=== PATIENT | male | born 1970 | race Caucasian/White ===

== ENCOUNTER 2017-05-25 17:30 | Outpatient (RCR) | payer BC, SELFPAY ==
--- NOTE | 2017-05-30 08:20 | HP.PTEVAL_ITS ---
Patient's Visit Information GITA SIERRA is a 46 year old M referred to Physical Therapy by Theron Sharp with a diagnosis of R rhomboid strain. Date of Evaluation: 05/18/17 Physical Therapist: Ismael Vann - Visit Plan Frequency: 1-2x /Week Duration: 4-6 Weeks Plan: Start with manual techniques including DN to R rhomboid. Add in pec stretching, postural education and proper body mechanics to reduce stress applied to R rhomboid with all gym and work activities. - Subjective Subjective: Pt. is here today for his initial evaluation with daignosis of right rhomboid strain. Pt. reports having issues for years. He has trialed massage, chiropractic, heat, ice, muscle relaxors. Pt. 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 Increases pain: work, using sledge hammer, lifting, press with lifting. Pt. just recently started lifting with . Decreases pain: stretching, and foam rolling, mild minimal. Pt. denies N/T with all activies with UEs. Pt. reports no xrays currently. He has no difficulty with breathing. Pt. denies shoulder pain as well. No L sided or thoracic spine pain. Pt. is hopeful to reduce symptoms in order to get back to all recreational and work activities without issues. - Pain R side of mid thoracic spine Pain Intensity (Out of 10): 3 Pain Intensity Range: 1, 6 - Objective POSTURE: Pt. has slight rounded shoulder, symmetrical. Pt. has increased thoracic kyphosis, but is able to self correct. Pt. has normal shoulder heights. PALPATION: Pt. has no thoracic spinous process pain with PAs, Pt. harkins no L sided pain. R side of mid trap/rhomboid is painful, increased pain along medial boarder of R scapulea. NEUROLOGICAL: Pt. has normal sensation to light and sharp touch. Pt. has 2+ biceps and triceps DTR. No limb tension noted. ROM : Pt. has full bilateral shoulder ROM without increase in symptoms. Pt. has mild increase in symptoms with scapular retraction, stretch felt with protraction. Pt. has normal thoracic spine mobility. MMT: PT. has 5/5 bilateral shoulder strength. R mid trap 4+/5 increase NW, R rhomboid 4+/5 increase NW. No left sided issues noted. - Special Tests Thoracic Sitting: Flexion - Symptoms During Testing: No effect Thoracic Sitting: Flexion - Symptoms After Testing: No effect Thoracic Sitting: Extension - Mechanical Response: No effect Thoracic Sitting: Extension - Symptoms During Testing: No effect Thoracic Sitting: Extension - Symptoms After Testing: No effect Thoracic Sitting: Right rotation - Mechanical Response: No effect Thoracic Sitting: Right Rotation - Symptoms During Testing: No effect Thoracic Sitting: Right Rotation - Symptoms After Testing: No effect Thoracic Sitting: Left rotation - Mechanical Response: No effect Thoracic Sitting: Left Rotation - Symptoms During Testing: No effect Thoracic Sitting: Left Rotation - Symptoms After Testing: No effect Thoracic Lying: Prone Extension - Mechanical Response: No effect Thoracic Lying: Prone Extension - Symptoms During Testing: No effect Thoracic Lying: Prone Extension - Symptoms After Testing: No effect Thoracic Lying: Supine Extension - Mechanical Response: No effect Thoracic Lying: Supine Extension - Symptoms During Testing: No effect Thoracic Lying: Supine Extention - Symptoms After Testing: No effect - Goals Goal 1:: Pt. to be I with HEP. Goal Time Frame: 4-6 Weeks Goal 2:: Pt. to have no pain with all work and gym related activities. Goal Time Frame: 4-6 Weeks Goal 3:: Pt. to have decreased tenderness in R scapular region with all over head lifting. Goal Time Frame: 4-6 Weeks Goal 4:: Pt. to have decreased muscle tension noted at R rhomboid. Goal Time Frame: 4-6 Weeks - Rehabilitation Potential Physical Therapy Diagnosis: Pt. appears to have a R rhomboid strain, most likely due to work related activitie with imprope postures. Pt. has no soft tissue restrictions, but is tender with activation of his rhomboids and is tender to muscle palpation. Pt. would benefit from PT with focus on muscle inhibition and improved posture to promote proper muscle tension relation. Rehabilitation Potential: Excellent - Anticipated Interventions Patient/Client Instruction: Educate patient on: Condition, Plan of Care, Risk Factors, Benefits of Fitness Program For the Purpose of:: To improve health and function, To foster healthy habits, To improve decision making, To facilitate caregiver knowledge, To improve self management, To prevent re-injury, To improve ability to perform tasks related to life management Therapeutic Exercise to Include: Strength training, Power training, Body mechanics, Postural training, Flexibilty training, Passive ROM, Active ROM, Scapular Strength/Stabilization For the Purpose of:: To decrease pain, To increase ROM, To improve nutrient delivery to tissue, To increase oxygenation perfusion, To improve muscle performance and motor function, To improve health of tissue, To decrease soft tissue restriction, To increase flexibility/ROM Manual Therapy Techniques to Include: Trigger point massage, Massage, Mobilization, Functional dry needling, Soft tissue mobilization For the Purpose of:: To decrease pain, To increase ROM, To improve nutrient delivery to tissue Thank you for the opportunity to evaluate your patient. For Medicare and Medicare HMO plans, please review the plan of care and approve it. It will need to be FAXED BACK to us at [phone] for Medicare purposes. Please let me know if there are questions or concerns regarding this plan of care. Physician Signature: Date:
--- NOTE | 2017-11-22 12:53 | HP.PT.NRP ---
HP - Discharge Summary (1) - Patient Information GITA SIERRA was seen in my office for initial evaluation on 05/18/17. The following Plan of Care was established for this patient: Initial Frequency: 1-2x /Week Initial Duration: 4-6 Weeks - Anticipated Interventions Patient/Client Instruction: Educate patient on: Condition, Plan of Care, Risk Factors, Benefits of Fitness Program For the Purpose of:: To improve health and function, To foster healthy habits, To improve decision making, To facilitate caregiver knowledge, To improve self management, To prevent re-injury, To improve ability to perform tasks related to life management Therapeutic Exercise to Include: Strength training, Power training, Body mechanics, Postural training, Flexibilty training, Passive ROM, Active ROM, Scapular Strength/Stabilization For the Purpose of:: To decrease pain, To increase ROM, To improve nutrient delivery to tissue, To increase oxygenation perfusion, To improve muscle performance and motor function, To improve health of tissue, To decrease soft tissue restriction, To increase flexibility/ROM Manual Therapy Techniques to Include: Trigger point massage, Massage, Mobilization, Functional dry needling, Soft tissue mobilization For the Purpose of:: To decrease pain, To increase ROM, To improve nutrient delivery to tissue This patient was last seen in our office 05/25/17. Pertinent comments regarding their Physical therapy will appear below: Pt. was seen for his R rhomboid strain. Pt. was treated with postural education and DN. Pt. was seen for 2 visits. Pt. has not been seenn in ~6 months and will be DC from PT at this point in time. At this point I will be discontinuing this patient from physical therapy. I would be happy to see this patient again in the future if found appropriate by the physician. Thank you! Ismael Vann
== END 2017-05-25 19:00 | disposition home or self-care (01) ==
LOC: PT 17:30
PROVIDERS: Family Provider Family Medicine; PCP Family Medicine; Visit Provider Family Medicine
DX: S46.812D Strain of other muscles, fascia and tendons at shoulder and upper arm level, left arm, subsequent encounter (principal)
CPT/HCPCS: 97110; 97140; 97161

== ENCOUNTER → 2018-02-09 16:03 | Outpatient (CLI) | payer BC, SELFPAY ==
--- NOTE | 2018-02-09 16:04 | CT_ITS ---
STUDY: CT MAXILLOFACIAL SINUSES REASON FOR EXAM: Male, 47 years old. Chronic sinusitis RADIATION DOSAGE (If Supplied By Facility): CTDIvol = ( 33.06 ) mGy, DLP = ( 883.43 ) mGycm TECHNIQUE: The patient was scanned in a multi detector CT scanner. High resolution axial imaging was performed without the administration of intravenous contrast material. Sagittal and coronal images were reconstructed. Individualized dose optimization techniques were used for this CT. COMPARISON: None. FINDINGS: FRONTAL SINUSES: Normal aeration, without mucosal inflammatory disease. ETHMOIDAL SINUSES: Right ethmoidectomies. MAXILLARY SINUSES: Normal aeration, without mucosal inflammatory disease. SPHENOIDAL SINUSES: Normal aeration, without mucosal inflammatory disease. There is patency of the bilateral maxillary infundibuli with normal uncinate processes, ethmoid bullae, and hiatus semilunaris. Normal bilateral middle turbinates. Normal bilateral inferior turbinates. Normal midline nasal septum. There is patency of the bilateral nasal airways. The visualized osseous structures are normal. The visualized bilateral orbital contents are normal. CT/Sinus/Facial Bone IMPRESSION: No evidence of acute or chronic paranasal sinusitis. Electronically Signed: Angel Jacobo MD at 4:39 EST Tel , Service support ,
== END ==
PROVIDERS: Family Provider Family Medicine; PCP Family Medicine; Referring Provider Otolaryngology; Visit Provider Otolaryngology
DX: J32.9 Chronic sinusitis, unspecified (principal)
CPT/HCPCS: 70486

== ENCOUNTER → 2018-09-05 | Outpatient (CLI) | payer BC, SELFPAY ==
--- NOTE | 2018-09-05 17:09 | RAD_ITS ---
STUDY: X-RAY - CERVICAL SPINE REASON FOR EXAM: Male, 47 years old. Muscle strain. Pain. TECHNIQUE: 6 view(s) of the cervical spine were obtained. COMPARISON: None FINDINGS: There is no evidence of fracture or dislocation in the cervical spine. The dens is intact. The vertebral body heights and disc spaces are well-maintained. There are no significant degenerative changes. The prevertebral soft tissues are unremarkable. There is no radiodense foreign body. RAD/Cerv Spine 4 or 5 Views IMPRESSION: No fracture or dislocation in the cervical spine. Electronically Signed: Maximino Luther, at 19:10 EDT Tel , Service support ,
== END | disposition home or self-care (01) ==
LOC: RAD 17:08
PROVIDERS: Family Provider Family Medicine; PCP Family Medicine; Referring Provider Family Medicine; Visit Provider Family Medicine
DX: S46.811A Strain of other muscles, fascia and tendons at shoulder and upper arm level, right arm, initial encounter (principal)
CPT/HCPCS: 72050

== ENCOUNTER → 2018-09-18 | Outpatient (CLI) | payer BC, SELFPAY ==
[2018-09-18 07:47] LABS: Anion Gap 4 (5-15); BUN 11 mg/dL (7-18); BUN/Creat Ratio 9.2 RATIO (10-20); Chloride 110 mmol/L (98-107); Cholesterol 191 mg/dL (200); Creatinine, Serum 1.19 mg/dL (0.70-1.30); EST Glomerular Filtration Rate 69 mL/min (>60); Est Glom Filt Rate - Afr Amer 83 mL/min (>60); Glucose 89 mg/dL (74-106); High Density Lipoprotein 49 mg/dL; Potassium 4.5 mmol/L (3.5-5.1); Sodium Level 141 mmol/L (136-145); Triglycerides 104 mg/dL; Very Low Density Lipoprotein 21 mg/dL (5-40)
[2018-09-18 08:55] LABS: Vitamin D,25 Hydroxy 37.5 ng/mL (29.95-100.01)
== END | disposition home or self-care (01) ==
LOC: LAB 05:55
PROVIDERS: Family Provider Family Medicine; PCP Family Medicine; Referring Provider Family Medicine; Visit Provider Family Medicine
DX: Z00.00 Encounter for general adult medical examination without abnormal findings (principal); E55.9 Vitamin D deficiency, unspecified; G43.909 Migraine, unspecified, not intractable, without status migrainosus
CPT/HCPCS: 36415; 80048; 80061; 82306

== ENCOUNTER → 2019-01-25 16:39 | Outpatient (CLI) | payer BC, SELFPAY ==
[2019-01-24 17:58] VITALS: BMI 28.3
--- NOTE | 2019-01-25 16:40 | RAD_ITS ---
STUDY: X-RAY - LEFT KNEE REASON FOR EXAM: Male, 48 years old. Pain. TECHNIQUE: 2 view(s) of the knee. COMPARISON: None. FINDINGS: Normal visualized distal femur. Normal visualized proximal tibia and fibula. Normal proximal tibiofibular articulation. There is no acute fracture, dislocation or destructive osseous pathology. Normal medial femorotibial compartment. Normal lateral femorotibial compartment. Normal patellofemoral articulation. There is no demonstrated joint effusion. The soft tissue structures are unremarkable. RAD/Knee 1 or 2 Views IMPRESSION: Normal x-ray examination of the knee. Electronically Signed: Onel Martinez DO at 23:39 EST Tel [phone], Service support ,
== END ==
PROVIDERS: Family Provider Internal Medicine; PCP Internal Medicine; Referring Provider Internal Medicine; Visit Provider Internal Medicine
DX: M25.562 Pain in left knee (principal)
CPT/HCPCS: 73560

== ENCOUNTER → 2019-01-29 05:56 | Outpatient (CLI) | payer BC, SELFPAY ==
[2019-01-24 17:58] VITALS: BMI 28.3
[2019-01-29 07:38] LABS: Absolute Lymphocyte Count 2.71 X10^3/uL (0.83-4.51); Absolute Neutrophil Count 3.3 X10^3/uL (2.0-7.7); Basophil# 0.03 X10^3/uL; Basophil% 0.4 % (0-1); Eosinophil# 0.12 X10^3/uL; Eosinophils% 1.8 % (0-5); Hematocrit 49.5 % (40-54); Hemoglobin 16.4 g/dL (13.0-16.5); Lymphocyte # 2.71 X10^3/ul (4.0); Lymphocyte % 40.6 % (19-41); Mean Corp Hgb Conc 33.1 g/dL (32-36); Mean Corpuscular Hgb 30.7 pg (27.0-32.0); Mean Corpuscular Volume 92.7 fL (80-94); Mean Platelet Vol. 10.5 fl (6.2-12.0); Monocyte# 0.55 X10^3/uL; Monocyte% 8.2 % (0-10); NRBC Flagged by Analyzer 0 % (0-5); Neutrophil # 3.25 X10^3/uL (2.7-7.7); Neutrophil % 48.7 % (47-70); Platelet Count 310 K/mm3 (150-450); RBC Distribution Width CV 11.7 % (11.6-14.6); RBC Distribution Width SD 39.9 fl (35.1-43.9); Red Blood Count 5.34 M/mm3 (4.6-6.2); White Blood Count 6.7 K/mm3 (4.4-11.0)
== END ==
PROVIDERS: Family Provider Internal Medicine; PCP Internal Medicine; Referring Provider Internal Medicine; Visit Provider Internal Medicine
DX: Z00.00 Encounter for general adult medical examination without abnormal findings (principal)
CPT/HCPCS: 36415; 85025

== ENCOUNTER → 2019-03-01 16:45 | Outpatient (CLI) | payer BC, SELFPAY ==
[2019-02-23 15:33] VITALS: BMI 28.3
--- NOTE | 2019-03-01 16:46 | EKG12_ITS ---
Test Reason : HTN Blood Pressure : / mmHG Vent. Rate : 053 BPM Atrial Rate : 053 BPM P-R Int : 136 ms QRS Dur : 084 ms QT Int : 380 ms P-R-T Axes : 041 020 020 degrees QTc Int : 356 ms Sinus bradycardia Otherwise normal ECG Confirmed by KARLY COFFEY, REA ([id number]), avid editor IRMA ROBLERO ([id number]) on 03/02/2019 10:05:59 AM Referred By: Miguelangel Abbasi Confirmed By:SARAI BRANDT MD
== END ==
PROVIDERS: PCP Internal Medicine; Referring Provider Nurse Practitioner Family; Visit Provider Nurse Practitioner Family
DX: R07.9 Chest pain, unspecified (principal)
CPT/HCPCS: 93005

== ENCOUNTER 2019-03-06 06:34 | Day surgery (SDC) | payer BC, SELFPAY ==
[2019-01-24 17:58] VITALS: BMI 28.3
[2019-02-23 15:33] VITALS: BMI 28.3
[2019-03-06] VITALS (8 sets, daily range): BP systolic 101–135; BP diastolic 79–90; PULSE 59–66; RESP 14–16; TEMP 36.1–36.4; O2SAT 92–98; BMI 27.8
--- NOTE | 2019-03-06 07:01 | PCM.HP.STD ---
Problem List (1) Screening for intestinal cancer Status: Acute History of Present Illness Date of Admission: 03/06/19 The patient is a 48 year old M who presents for screening colonoscopy today. He has not had a previous one. There is no family history direct members with colon polyps or colon cancer. He otherwise enjoys good health. No abdominal pain. No bright red blood per rectum or melena. Past Medical History Medical History: Medical History (Last Reviewed 01/24/19 @ 17:58 by Senia Abernathy) Migraines G43.909 Seasonal allergies J30.2 Allergies No Known Allergies Allergy (Unverified 03/02/19 14:37) Home Medications: Ambulatory Orders Medication Instructions Recorded dzyyynor-xiy-siswj 200 mcg-lycop 1 tab PO DAILY tab 12/27/18 175 mcg-lutei 250 mcg-herb 178 tablet rizatriptan 10 mg tablet 10 mg PO ONCE 12/27/18 cyclobenzaprine 10 mg tablet 5 - 10 mg PO TID PRN #30 tab 02/23/19 propranolol 60 mg capsule,24 60 mg PO DAILY #30 cap 02/23/19 hr,extended release Surgical History: Surgical History (Last Reviewed 01/24/19 @ 17:58 by Senia Abernathy) History of hernia repair Z98.890, Z87.19 1998 History of sinus surgery Z98.890 2010 Smoking Status: Former smoker Tobacco Use: Non-smoker Review of Systems Constitutional: Denies: Anorexia HEENT: Denies: Difficulty Swallowing Cardiovascular: Denies: Chest Pain Respiratory: Denies: Cough Gastrointestinal: Denies: Abdominal Pain, Melena Endocrine: Denies: Change in Body Habitus VTE Information - Inpt Only VTE Present on Admission: No Patient Problems: Active and Suspected Problems (Last Reviewed 01/24/19 @ 17:58 by Senia Abernathy) Screening for intestinal cancer (Acute) - Physical Exam Vitals/I&O's: Body Mass Index (BMI) 28.3 General: Alert, Oriented x3, Cooperative, No apparent distress Oral: Moist Mucosa Neck: Supple Lungs: Clear to auscultation Cardiovascular: Regular rate, Regular Rhythm Abdomen: Bowel Sounds Present, Soft, Non Tender, Non-Distended Extremities: No Calf Tenderness Psych/Mental Status: Normal Affect Assessment/Plan All Active Problems (Last Reviewed 01/24/19 @ 17:58 by Senia Zimmerly) Screening for intestinal cancer (Acute) Plan to proceed with a colonoscopy with possible biopsy or polypectomy is indicated. The patient is aware of the technique, benefit, risks, alternatives. He has had an opportunity to ask and have questions answered. He presents via our open access program today. Demarco Wing M.D., F.A.C.S.
[2019-03-06] MEDS: Lactated Ringers 1,000 ML 100 ML IV (07:11)
--- NOTE | 2019-03-06 07:30 | COLBX_PTH ---
PATIENT: GITA SIERRA LOC: [facility] U#:[id number] AGE/SX: 48/M ROOM: RE03/06/[address]: Dr. Demarco Wing MD : 1970 BED: DIS: 03/06/2019 SPEC #: [id number] RECD: 03/06/19 09:48 STATUS: BUD ORDOÑEZ #: [id number] CHANDA: 03/06/19 07:[address]: Demarco Wing DEPT: SURGICAL PATHOLOGY RECD BY: Blas Florence ENTERED: 03/06/19 13:16 SP TYPE: COLON BX OTHR DR: Dr. Arabella Alcantara MD Tissues: Rectum, NOS Procedures: Surgery Specimen Level IV HEADER OPERATION: Colonoscopy - open access (MOD) PRE-OP DIAGNOSIS: Screening TISSUE SUBMITTED: Rectal polyp biopsy MICROSCOPIC DIAGNOSIS Rectal polyp, biopsy: Fragments of tubular adenoma. SJ:sanjuana 03/07/19 MICROSCOPIC DESCRIPTION Slides are reviewed. GROSS DESCRIPTION Received in fixative is one container labeled with the patient's name and designated rectal polyp biopsy. The specimen consists of multiple irregular fragments of light bull soft tissue that in aggregate measure 0.6 x 0.5 x 0.1 cm. The specimen is totally submitted in one cassette. / SJ:sanjuana 03/06/19 TC:1 CPT: 93135
--- NOTE | 2019-03-06 07:59 | OP.CCLET_ITS ---
03/06/2019 Arabella Alcantara MD [address] [place] [address] [place] [address] Re : Colonoscopy procedure for Harsh Laughlin Dear Dr. Alcantara This procedure was performed on Wednesday, March 06, 2019. My impressions and recommendations are as follows: Impressions : - Non-thrombosed external hemorrhoids, non-thrombosed internal hemorrhoids and internal hemorrhoids (Grade I) found on digital rectal exam. - One 4 mm polyp in the rectum, removed with a cold biopsy forceps. Resected and retrieved. - Diverticulosis in the sigmoid colon. - The examination was otherwise normal. Recommendations : - Discharge patient to home. - Resume previous diet. - Continue present medications. - Repeat colonoscopy in 5 years for surveillance. - Telephone my office for pathology results in 1 week. My findings are described in the full procedure note, which is enclosed. If I can be of further assistance, please feel free to contact me at Doctor phone number(s): Work: . Sincerely, Demarco Wing MD 03/06/2019 7:58:54 AM This report has been signed electronically.
--- NOTE | 2019-03-06 07:59 | OP.COLON_ITS ---
Patient Name: Harsh Laughlin Procedure Date: 03/06/2019 7:32 AM Date of : 1970 Age: 48 Procedure: Colonoscopy Indications: Screening for colorectal malignant neoplasm Providers: Demarco Wing MD Referring MD: Arabella Alcantara MD Medicines: Midazolam 4 mg IV, Meperidine 100 mg IV Patient Profile: Last Colonoscopy: none. The patient's first colonoscopy is today. Complications: No immediate complications. Procedure: Pre-Anesthesia Assessment: - Prior to the procedure, a History and Physical was performed, and patient medications and allergies were reviewed. The patient's tolerance of previous anesthesia was also reviewed. The risks and benefits of the procedure and the sedation options and risks were discussed with the patient. All questions were answered, and informed consent was obtained. Prior Anticoagulants: The patient has taken no previous anticoagulant or antiplatelet agents. ASA Grade Assessment: II - A patient with mild systemic disease. After reviewing the risks and benefits, the patient was deemed in satisfactory condition to undergo the procedure. After I obtained informed consent, the scope was passed under direct vision. Throughout the procedure, the patient's blood pressure, pulse, and oxygen saturations were monitored continuously. The pediatric colonoscope was introduced through the anus and advanced to the cecum, identified by appendiceal orifice and ileocecal valve. The colonoscopy was performed without difficulty. The patient tolerated the procedure well. The quality of the bowel preparation was good. The ileocecal valve and the appendiceal orifice were photographed. Moderate Sedation: Moderate (conscious) sedation was personally administered by the endoscopist. The following parameters were monitored: oxygen saturation, heart rate, blood pressure, and response to care. Total physician intraservice time was 15 minutes. Scope In: 7:39:31 AM Scope Withdrawal Time 0 hours 10 minutes 49 seconds Scope Out: 7:54:59 AM Total Procedure Duration Time 0 hours 15 minutes 28 seconds Findings: The digital rectal exam findings include non-thrombosed external hemorrhoids, non-thrombosed internal hemorrhoids and internal hemorrhoids (Grade I). Pertinent negatives include normal prostate (size, shape, and consistency). A 4 mm polyp was found in the rectum. The polyp was sessile. The polyp was removed with a cold biopsy forceps. Resection and retrieval were complete. A few diverticula were found in the sigmoid colon. The exam was otherwise without abnormality. Impression: - Non-thrombosed external hemorrhoids, non-thrombosed internal hemorrhoids and internal hemorrhoids (Grade I) found on digital rectal exam. - One 4 mm polyp in the rectum, removed with a cold biopsy forceps. Resected and retrieved. - Diverticulosis in the sigmoid colon. - The examination was otherwise normal. Recommendation: - Discharge patient to home. - Resume previous diet. - Continue present medications. - Repeat colonoscopy in 5 years for surveillance. - Telephone my office for pathology results in 1 week. Procedure Code(s): --- Professional --- 13447, Colonoscopy, flexible; with biopsy, single or multiple 56688, 59, Moderate sedation services provided by the same physician or other qualified health care taker performing the diagnostic or therapeutic service that the sedation supports, requiring the presence of an independent trained observer to assist in the monitoring of the patient's level of consciousness and physiological status; initial 15 minutes of intraservice time, patient age 5 years or older Diagnosis Code(s): --- Professional --- Z12.11, Encounter for screening for malignant neoplasm of colon K64.0, First degree hemorrhoids K64.4, Residual hemorrhoidal skin tags K62.1, Rectal polyp K57.30, Diverticulosis of large intestine without perforation or abscess without bleeding CPT copyright 2017 [employer]. All rights reserved. The codes documented in this report are preliminary and upon hcc coders review may be revised to meet current compliance requirements. Demarco Wing MD 03/06/2019 7:58:54 AM This report has been signed electronically. Number of Addenda: 0 Note Initiated On: 03/06/2019 7:32 AM
== END 2019-03-06 08:34 | disposition home or self-care (01) ==
LOC: EN 06:34 → AC 06:35
PROVIDERS: Family Provider Internal Medicine; PCP Internal Medicine; Referring Provider Internal Medicine; Visit Provider Surgery
PROC: 0DJD8ZZ Inspection of Lower Intestinal Tract, Via Natural or Artificial Opening Endoscopic (ICD-10-PCS; CPT 45378; principal; 2019-03-06 07:25)
DX: Z12.11 Encounter for screening for malignant neoplasm of colon (principal); D12.8 Benign neoplasm of rectum; K64.0 First degree hemorrhoids; K57.30 Diverticulosis of large intestine without perforation or abscess without bleeding; G43.909 Migraine, unspecified, not intractable, without status migrainosus; J30.2 Other seasonal allergic rhinitis; Z79.899 Other long term (current) drug therapy; Z87.891 Personal history of nicotine dependence
CPT/HCPCS: 45380; 88305; 99152; 99153; J7120

== ENCOUNTER 2019-03-19 18:00 | Outpatient (RCR) | payer BC, SELFPAY ==
[2019-01-24 17:58] VITALS: BMI 28.3
--- NOTE | 2019-02-12 19:13 | HP.PTEVAL ---
Patient's Visit Information GITA SIERRA is a 48 year old M referred to Physical Therapy by Arabella Alcantara MD with a diagnosis of PAIN IN LEFT KNEE. Date of Evaluation: 02/12/19 Physical Therapist: Roderick Jones PT, Cert MDT, OCS - Visit Plan Frequency: 2x /Week Duration: 4 Weeks Plan: PT INTERVENTIONS PRE'S QUAD/HAMS/HIP,FUNCTIONAL STRENGTHENING,FLEXABLITY - Subjective Findings: This 48 y/o male presents to physical therapy with with left knee pain.Patient has had left knee pain month. 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 Patient reports knee pain posterior knee and surrounding patella . Aggravting factors bend postion ,squatting/kneeling,job demands. Patient reports pain desribed as ache. Patient alleviating factors ice,ibuprofrin. Denies parathesia/tingling. Patient pain affects sleeping at night ache. Patient pain affects job demands ADL'S and housework tasks. Patient symptoms affects QOL. SOCIAL: . 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 GAIT: reciprocal pattern. EDEMA: unremarkable. AROM: supine knee flexion 0-135 degrees. MMT: quads/hams/hip 4/5 abduction/adduction ankle 5/5. ATROPHIED: left quad 2cm difference. PROPRIOCEPTION: INTACT - Special Tests L Knee Mohan - Meniscus: Negative L Knee Diamante - ACL: Negative L Knee Posterior Sag - PCL: Negative L Knee Valgus - MCL: Negative L Knee Varus - LCL: Negative L Knee Patellar Apprehension - PFS: Negative L Knee Patellar Grind - PFS: Negative - Goals Goal 1:: Patient to be Independant with HEP Goal Time Frame: 4-6 Weeks Goal 2:: Patient decrease knee pain by 60% or > to improve funtion with job demnads. Goal Time Frame: 4-6 Weeks Goal 3:: Patient to increase strength quads/hams/hip 5/5 to improve function. Goal Time Frame: 4-6 Weeks Goal 4:: Patient to improve LFES score by 5-8 points or > to improve function. Goal Time Frame: 4-6 Weeks Goal 5:: Patient to increase ability to perform job demnads withoit symptoms. Goal Time Frame: 4-6 Weeks - Rehabilitation Potential Physical Therapy Diagnosis: This patient has left knee pain with decrease strength ,ROM and pain affects squatting ,knneling and job demands thus beifit from skilled PT Rehabilitation Potential: Good - Anticipated Interventions Patient/Client Instruction: Educate patient on: Condition, Plan of Care For the Purpose of:: To decrease pain, To increase ROM, To improve muscle performance and motor function, To improve ability to perform ADL's, To increase tolerance to activity/condition/position, To improve ability of physical actions for home/community/work/leisure, To improve health of tissue, To decrease soft tissue restriction, To increase flexibility/ROM, To improve ability to perform tasks related to life management Therapeutic Exercise to Include: Strength training, Postural training, Flexibilty training, Active ROM Comment: QUADS/HAMS For the Purpose of:: To decrease pain, To increase ROM, To improve muscle performance and motor function, To improve ability to perform ADL's, To improve performance and independence with ADL's, To improve ability of physical actions for home/community/work/leisure, To improve health of tissue, To decrease soft tissue restriction, To increase flexibility/ROM, To improve ability to perform tasks related to life management TENS: Yes IF ES: Yes Cryotherapy (ice pack, ice massage): Yes Thermo therapy (hot pack): Yes Ultrasound (thermal/non thermal): Yes For the Purpose of:: To decrease pain, To increase ROM, To improve health of tissue, To decrease soft tissue restriction Thank you for the opportunity to evaluate your patient. For Medicare and Medicare HMO plans, please review the plan of care and approve it. It will need to be FAXED BACK to us at [phone] for Medicare purposes. For Medicare only, by signing this I certify the plan of care. Please let me know if there are questions or concerns regarding this plan of care. Physician Signature: Date:
--- NOTE | 2019-03-19 19:09 | HP.PTDCSUM ---
HP - PT D/C Summary It has been my pleasure to treat GITA SIERRA under orders from Arabella Alcantara MD, for the diagnosis of PAIN IN LEFT KNEE for a total of 9 visit(s). Discharge Date: 03/19/19 Please see the following information for a summary of their discharge status. - Subjective Subjective: Doing well min pain due to my job demands. Exercises seem to help alot - Pain Left Knee Pain Intensity (Out of 10): 1 - Overall Improvement % Improvement: 80 - Objective Objective/Function: AROM: 0-135 degrees supine. GAIT: reciprocal pattern. MMT: quads/hams 5/5 - Goals Goal 1:: Patient to be Independant with HEP Goal Progress: Goal Met Goal 2:: Patient decrease knee pain by 60% or > to improve funtion with job demnads. Goal Progress: Goal Met Goal 3:: Patient to increase strength quads/hams/hip 5/5 to improve function. Goal Progress: Goal Met Goal 4:: Patient to improve LFES score by 5-8 points or > to improve function. Goal Progress: Goal Met Goal 5:: Patient to increase ability to perform job demnads withoit symptoms. Goal Progress: Goal Met - Plan Plan: D/C TO HEP - D/C Information Discharge Comments: HEP If there are questions or concerns regarding this patient's physical therapy, please feel free to call me at [phone]. Thank you for the referral of this patient. Sincerely, Roderick Jones, PT, Cert MDT, OCS
== END 2019-03-19 19:00 | disposition home or self-care (01) ==
LOC: PT 18:00
PROVIDERS: Family Provider Internal Medicine; PCP Internal Medicine; Referring Provider Internal Medicine; Visit Provider Internal Medicine
DX: M25.562 Pain in left knee (principal)
CPT/HCPCS: 97110; 97161

== ENCOUNTER → 2020-04-03 | Outpatient (CLI) | payer BC, SELFPAY | END | disposition home or self-care (01) | LOC: LABSPEC 10:25 | PROVIDERS: PCP Family Medicine; Visit Provider Family Medicine | DX: Z20.828 Contact with and (suspected) exposure to other viral communicable diseases (principal) | CPT/HCPCS: 87635; U0005; U0003 ==

== ENCOUNTER 2020-08-23 16:56 | Emergency (ER) | payer BC, SELFPAY ==
[2020-08-23 16:58] VITALS: BP 164/105; PULSE 71; RESP 16; TEMP 36.6; O2SAT 99; BMI 28.2
[2020-08-23] MEDS: HYDROmorphone 1 MG/ML Syringe IV ×2 (17:10→17:50)
[2020-08-23] MEDS: Ondansetron 4 MG/2 ML Vial IV (17:10)
[2020-08-23] MEDS: 0.9% Normal Saline 1,000 ML 1000 ML IV ×2 (17:52→18:49)
[2020-08-23] MEDS: Diphth,Pertuss(Acell),Tet Vac 0.5 ML Vial IM (17:55)
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
[2020-08-23 18:50] VITALS: BP 148/97; PULSE 81; RESP 16; O2SAT 100
[2020-08-23 19:55] VITALS: RESP 16
== END 2020-08-23 19:56 | disposition home or self-care (01) ==
PROVIDERS: Emergency Provider Emergency Medicine; PCP Family Medicine
DX: T22.211A Burn of second degree of right forearm, initial encounter (principal); T22.20XA Burn of second degree of shoulder and upper limb, except wrist and hand, unspecified site, initial encounter; T21.21XA Burn of second degree of chest wall, initial encounter; T20.17XA Burn of first degree of neck, initial encounter; T20.19XA Burn of first degree of multiple sites of head, face, and neck, initial encounter; T31.10 Burns involving 10-19% of body surface with 0% to 9% third degree burns; Z23 Encounter for immunization; I10 Essential (primary) hypertension; Z79.899 Other long term (current) drug therapy
CPT/HCPCS: 90715; 96361; 96374; 96375; 96376; 99283; J7030; A4216; J2405

== ENCOUNTER → 2021-09-25 | Outpatient (CLI) | payer BC, SELFPAY ==
[2021-09-25 08:30] LABS: Absolute Lymphocyte Count 2.67 X10^3/uL (0.83-4.51); Absolute Neutrophil Count 3.4 X10^3/uL (2.0-7.7); Basophil# 0.03 X10^3/uL; Basophil% 0.4 % (0-1); Eosinophils% 1.5 % (0-5); Hematocrit 46.3 % (40-54); Hemoglobin 15.7 g/dL (13.0-16.5); Lymphocyte # 2.67 X10^3/ul (0.83-4.51); Lymphocyte % 39.3 % (19-41); Mean Corp Hgb Conc 33.9 g/dL (32-36); Mean Corpuscular Hgb 31.8 pg (27.0-32.0); Mean Corpuscular Volume 93.9 fL (80-94); Monocyte# 0.54 X10^3/uL; NRBC Flagged by Analyzer 0 % (0-5); Neutrophil # 3.44 X10^3/uL (2.7-7.7); Neutrophil % 50.7 % (47-70); Platelet Count 306 K/mm3 (150-450); RBC Distribution Width CV 11.9 % (11.6-14.6); Red Blood Count 4.93 M/mm3 (4.6-6.2); White Blood Count 6.8 K/mm3 (4.4-11.0)
[2021-09-25 09:00] LABS: Anion Gap 4 (5-15); BUN 14 mg/dL (7-18); BUN/Creat Ratio 11.1 RATIO (10-20); Calcium,Total 8.9 mg/dL (8.5-10.1); Chloride 110 mmol/L (98-107); Cholesterol 175 mg/dL (200); Creatinine, Serum 1.26 mg/dL (0.70-1.30); EST Glomerular Filtration Rate 64 mL/min (>60); Est Glom Filt Rate - Afr Amer 77 mL/min (>60); Glucose 98 mg/dL (74-106); High Density Lipoprotein 41 mg/dL; Potassium 4.4 mmol/L (3.5-5.1); Sodium Level 142 mmol/L (136-145); Triglycerides 95 mg/dL; Very Low Density Lipoprotein 19 mg/dL (5-40)
== END | disposition home or self-care (01) ==
LOC: LAB 07:19
PROVIDERS: PCP Family Medicine; Visit Provider Family Medicine
DX: Z00.00 Encounter for general adult medical examination without abnormal findings (principal)
CPT/HCPCS: 36415; 80048; 80061; 85025

== ENCOUNTER 2022-02-10 05:46 | Day surgery (SDC) | payer BC, SELFPAY ==
[2022-02-09 14:59] LABS: Hematocrit 48.3 % (40-54); Hemoglobin 16.3 g/dL (13.0-16.5); Mean Corp Hgb Conc 33.7 g/dL (32-36); Mean Corpuscular Volume 94.9 fL (80-94); Mean Platelet Vol. 10.5 fl (6.2-12.0); Platelet Count 314 K/mm3 (150-450); RBC Distribution Width CV 11.9 % (11.6-14.6); RBC Distribution Width SD 41.3 fl (35.1-43.9); Red Blood Count 5.09 M/mm3 (4.6-6.2); White Blood Count 7.2 K/mm3 (4.4-11.0)
[2022-02-09 15:49] LABS: Anion Gap 5 (5-15); BUN 8 mg/dL (7-18); BUN/Creat Ratio 5.6 RATIO (10-20); Calcium,Total 9.2 mg/dL (8.5-10.1); Chloride 107 mmol/L (98-107); Creatinine, Serum 1.43 mg/dL (0.70-1.30); EST Glomerular Filtration Rate 55 mL/min (>60); Est Glom Filt Rate - Afr Amer 67 mL/min (>60); Glucose 68 mg/dL (74-106); Potassium 4.2 mmol/L (3.5-5.1); Sodium Level 141 mmol/L (136-145)
[2022-02-10] VITALS (7 sets, daily range): BP systolic 113–122; BP diastolic 68–85; PULSE 56–72; RESP 16–18; TEMP 36.1–36.9; O2SAT 88–98; BMI 29.0
[2022-02-10] MEDS: Lactated Ringers 1,000 ML 15 ML IV (06:10)
--- NOTE | 2022-02-10 06:22 | PCM.HP.BLA ---
History and Physical Date of Admission: 02/10/22 Allergies No Known Allergies Allergy (Verified 02/01/22 14:28) Medications ghsmpgfn-fpo-yysyj 200 mcg-lycop 175 mcg-lutei 250 mcg-herb 178 tablet (Farhad Multivitamin For Men) 1 tab PO DAILY 12/27/18 [History Confirmed 02/01/22] propranolol 60 mg capsule,24 hr,extended release 60 mg PO DAILY #90 caps 04/17/19 [Rx Confirmed 02/01/22] rizatriptan 10 mg tablet (Maxalt) See Rx Instructions PO .COMPLEX #9 tabs 04/17/19 [Rx Confirmed 02/01/22] galcanezumab-gnlm 120 mg/mL subcutaneous pen injector (Emgality Pen) ml subcut 02/01/22 [History Confirmed 02/01/22] PFSH Medical History?(Updated 09/22/21 @ 14:26 by Leyla Vaughn) Hypertension Migraines Seasonal allergies Surgical History?(Updated 09/22/21 @ 14:26 by Leyla Vaughn) History of bilateral inguinal hernia repair (~1998) History of sinus surgery Family History? Other Blood clot in vein Social History? Smoking Status:? Never smoker alcohol intake:? current alcohol intake frequency: holidays/special occasions only substance use type:? does not use frequency:? 3-4 times per week HPI HPI Surgical H&P: Yes HPI: Patient is a 51 y/o M I am seeing for an update history and physical. Patient denies any recent hospitalization or illnesses since his last visit. He notes he has been evaluated by a neurologist since his last visit and was placed on Emgality for migraines. Patient notes some discomfort at the umbilical hernia. He denies any recent bowel habits changes. Patient notes vomiting with anesthesia. He denies previous cardiac or pulmonary concerns. Patient's previous history per Dr. Wing: GITA SIERRA, is a 50 M who presents to the office today for surgical consultation regarding an umbilical hernia.? The patient is referred by Dr. Meredith Servin and a written copy of my surgical consult recommendations will return to her.? I have assisted the patient February 2019 with a colonoscopy with repeat at 5 years recommended.? He has had a bilateral inguinal hernia repair the year 1999.? 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 He has noted this hernia over the past year and is progressively enlarging.? He has remote groin hernia repairs were done open through groin incisions.? He has no complaints or concerns. ROS General General: No weight change, appetite, fatigue, colon cancer, breast cancer or weakness HEENT HEENT: No difficulty swallowing, eye injury, eye surgery, swollen glands or hoarseness Endo Endocrine: No thyroid disease, diabetes mellitus, thyroid cancer, Hair loss, heat intolerance or cold intolerance Skin Skin: No rash or changing moles Musc Musculoskeletal: No back problems, arthritis, rheumatoid arthritis, gout or joint pain Cardio Cardiovascular: No murmur, pacemaker, heart disease, atrial fibrillation, high blood pressure, heart attack, heart stent, palpitations, shortness of breat with exertion or chest pain Psych Psychiatric: No depression, anxiety or hearing voices Resp Respiratory: No shortness of breath, No sleep apnea, No cough, No COPD, No asthma, No emphysema and No wheezing Gastro Gastrointestinal: No abdominal pain, No nausea or vomiting, No diarrhea, No constipation, No blood in stool, No acid reflux, Yes hemorrhoids, No ulcers, No gallbladder problem and No black,tarry stools Delfino Hematologic: No blood thinners, No blood disorders, No bleeding, No anemia and No blood clots Neuro Neurologic: No system reviewed and no additional complaints, except as documented, No as per HPI, No abnormal gait, No abnormal hearing, No abnormal movements, No abnormal speech, No behavioral changes, No burning sensations, No confusion, No convulsions, No disequilibrium, No dizziness, No localized weakness, No frequent falls, No headache(s), No lack of coordination, No loss of vision, No memory loss, No numbness, No other visual disturbances, No radicular pain, No restless legs, No sensory deficit, No syncope, No tingling, No tremor(s), No weakness and No other Exam Const General: cooperative, healthy appearing, comfortable and no acute distress [facility] Head: normal to inspection Eyes General: appearance normal, both eyes and all related structures Neck Neck: normal visual inspection Neck mass: No Resp Effort & Inspection: normal respiratory effort Auscultation: clear to auscultation bilaterally Cardio Rate: regular rate Rhythm: regular rhythm GI Palpation: soft and hernia umbilical (non-reducible) Auscultation: normal bowel sounds Musc Cervical Spine: normal cervical lordosis Skin General: no rashes or lesions noted Neuro General: no focal motor deficits Extrem General: normal to inspection Psych Appearance: grossly normal Affect: normal affect Assessment and Plan Assessment and Plan (1) Umbilical hernia: ?Status:?Acute ?Plan: Dr. Wing will plan to perform an umbilical hernia repair with mesh possible conversion to a laparoscopic repair with bilateral tap block. Procedure details, risks and benefits have been reviewed. Patient is aware that an overnight stay may be needed if a more invasive approach is taken. Patient has had the opportunity to ask and have questions answered. Patient verbally understands and agrees with the plan I anticipate a direct approach. Anticipating placement of Ventralex mesh. Patient is aware of technique, benefit, risk, alternatives. He is aware of the conversion to a laparoscopic approach will only be as needed. Demarco Wing M.D., F.A.C.S.
--- NOTE | 2022-02-10 06:38 | DCINST_ITS ---
Discharge Instructions Procedure General Surgery Diet Discharge Diet: Light diet - advance as tolerated (if you have questions about your diet instructions, please talk to you doctor.) Activity Discharge Activity: May Not Drive (for 3-5 days or while taking narcotic pain medicine.) May shower in (days): 1 Lifting Restrictions: 10 pounds Dressing / Incision Call your doctor if your incision/area has: Continuous Slow Oozing, Sudden Increased Bleeding, Increased Pain/ Swelling, Increased Redness and Foul Smelling Discharge Call your doctor if you observe: Fever of 101 or Higher Suture Line Care: Avoid Pulling/Pushing and Avoid Pinching/Bending Additional Dressing/Incision Instructions:: Change or remove dressing in 4 days. Leave steri-strips in place for 1 week. Follow Up Care Please Follow Up With: Demarco Wing MD When: Call [phone] to make an appointment to be seen in about 10 days. Test Results: Test results from this visit will be discussed in further detail at your follow- up appointment, if applicable. Discharge Plan Admission Attending Provider: Demarco Wing Primary Care Provider: Meredith Servin Discharge Orders/Prescriptions Prescriptions: No Action Farhad Multivitamin For Men 200-175-250 mcg tablet 1 tab PO DAILY Emgality Pen 120 mg/mL pen injector 1 ml subcut .QMO Nurtec ODT 75 mg Tablet,Disintegrating 75 mg PO QODAY PRN (Reason: MIGRAINES) rizatriptan [Maxalt] 10 mg tablet 10 mg PO PRN PRN (Reason: Migraine Headache) propranolol 60 mg capsule,extended release 24 hr 60 mg PO DAILY Qty: 90 3RF Referrals / Follow Up: Meredith Servin MD [Primary Care Provider] - Disposition Disposition (needs filled in before D/C Order can be placed): Home, Self Care
--- NOTE | 2022-02-10 07:15 | HERN_PTH ---
PATIENT: GITA SIERRA LOC: [facility] [place] U#:[id number] AGE/SX: 51/M ROOM: RE02/10/[address]: Dr. Demarco Wing MD : 1970 BED: DIS: 02/10/2022 SPEC #: [id number] RECD: 02/10/22 09:41 STATUS: BUD ORDOÑEZ #: [id number] CHANDA: 02/10/22 07:[address]: Demarco Wing DEPT: SURGICAL PATHOLOGY RECD BY: Zee Kebede ENTERED: 02/10/22 10:24 SP TYPE: Hernia OTHR DR: Dr. Meredith Servin MD Tissues: HERNIA Procedures: Surgery Specimen Level II HEADER OPERATION: Umbilical hernia repair with mesh PRE-OP DIAGNOSIS: Umbilical hernia TISSUE SUBMITTED: Hernia sac with contents MICROSCOPIC DIAGNOSIS Umbilical hernia sac, herniorrhaphy: Fibrofatty tissue consistent with hernia sac and contents. AM:sanjuana 02/11/2022 MICROSCOPIC DESCRIPTION Slides are reviewed. GROSS DESCRIPTION Received in fixative is one container labeled with the patient's name and designated hernia sac with contents. The specimen consists of a piece of adipose soft tissue measuring 9 x 3.5 x 2.5 cm. Sections do not reveal any mass lesion. Combine Driver sections are submitted in two cassettes. / SJ:sanjuana 02/10/2022 TC:5 [facility]: [id number]
[2022-02-10] MEDS: Cefazolin 2 GM in 0.9% Normal Saline 100 ML IV (07:17)
[2022-02-10] MEDS: Bupivacaine Mpf 0.5% 30 ML VIAL (08:18)
--- NOTE | 2022-02-10 08:19 | PCM.OPRPT ---
Report of Operation Date of Procedure: 02/10/22 Pre-Operative Diagnosis: Umbilical hernia Post-Operative Diagnosis: Umbilical hernia Surgery/Procedure Performed:: Umbilical herniorrhaphy with 6.[address] hernia patch Reference [id number], lot [id number], expiry date 12/11/2022 Description of Surgical Findings:: Timeout and informed consent was obtained. 51-year-old gentleman was taken to the operating placed upon the table underwent general endotracheal ovation esthesia Ancef 2 g were given intravenously the abdomen sterilely prepped and draped curvilinear incision was made in the inferior portion of the umbilicus sharp and blunt dissection was used to identify the incarcerated hernia tissue this was amputated with electrocautery a retrorectus plane was formed by elevating the peritoneum 6.[address] patch was inserted it opened nicely the tails were secured with interrupted 0 Nurolon and the fascia was approximated transversely with the same the fascial defect measured approximately 2 cm in diameter. The umbilical skin was fixed to the fascia with a 4-0 Monocryl. Subdermal tissues approximately the same. The fascia and the subcutaneous tissues anesthetized with 30 cc of 0.5% Marcaine. Steri-Strips cottonball Telfa OpSite dressing applied. Sponge and instrument and needle counts were reported to the surgeon to be correct. Specimen hernia sac and contents. Drains none. Blood loss minimal. The patient was taken to the recovery room in satisfactory addition without apparent complication Demarco Wing M.D., F.A.C.S. Surgeon: Demarco Wing Type of Anesthesia: General Anesthesiologist: Ira Rico
== END 2022-02-10 11:04 | disposition home or self-care (01) ==
LOC: SDC 05:47 → AC 05:47
PROVIDERS: PCP Family Medicine; Referring Provider Surgery; Visit Provider Surgery
PROC: (CPT 49585; principal; 2022-02-10 07:00)
DX: K42.9 Umbilical hernia without obstruction or gangrene (principal); G43.909 Migraine, unspecified, not intractable, without status migrainosus; I10 Essential (primary) hypertension; J30.2 Other seasonal allergic rhinitis
CPT/HCPCS: 49585; 00830; 36415; 80048; 85027; 88302; 93005; C1781; J7120; J2405

== ENCOUNTER → 2023-07-04 | Outpatient (CLI) | payer BC, SELFPAY ==
[2023-07-04 08:08] LABS: Absolute Lymphocyte Count 2.38 X10^3/uL (0.83-4.51); Absolute Neutrophil Count 3.7 X10^3/uL (2.0-7.7); Basophil# 0.04 X10^3/uL; Basophil% 0.6 % (0-1); Eosinophil# 0.07 X10^3/uL; Hematocrit 48.5 % (40-54); Lymphocyte # 2.38 X10^3/ul (0.83-4.51); Lymphocyte % 35.2 % (19-41); Mean Corpuscular Hgb 30.8 pg (27.0-32.0); Mean Corpuscular Volume 93.4 fL (80-94); Mean Platelet Vol. 10.4 fl (6.2-12.0); Monocyte# 0.55 X10^3/uL; Monocyte% 8.1 % (0-10); NRBC Flagged by Analyzer 0 % (0-5); Neutrophil # 3.71 X10^3/uL (2.7-7.7); Platelet Count 323 K/mm3 (150-450); RBC Distribution Width CV 11.9 % (11.6-14.6); RBC Distribution Width SD 40.8 fl (35.1-43.9); Red Blood Count 5.19 M/mm3 (4.6-6.2); White Blood Count 6.8 K/mm3 (4.4-11.0)
[2023-07-04 08:54] LABS: AST(SGOT) 19 U/L (15-37); Alanine Aminotransfer ALT/SGPT 33 U/L (16-61); Albumin, Serum 3.8 g/dL (3.2-5.0); Alkaline Phosphatase 82 U/L (45-117); Anion Gap 3 (5-15); BUN 14 mg/dL (7-18); BUN/Creat Ratio 11.9 RATIO (10-20); Calcium,Total 9.1 mg/dL (8.5-10.1); Chloride 107 mmol/L (98-107); Cholesterol 199 mg/dL (200); Creatinine, Serum 1.18 mg/dL (0.70-1.30); EST Glomerular Filtration Rate 68 mL/min (>60); Est Glom Filt Rate - Afr Amer 83 mL/min (>60); Globulin 3.9 g/dL (2.2-4.2); Glucose 102 mg/dL (74-106); High Density Lipoprotein 41 mg/dL; PSA,Total - Annual Screen 2.21 ng/mL (0.00-4.00); Potassium 4.1 mmol/L (3.5-5.1); Prolactin 9.2 ng/mL; Protein, Total 7.7 g/dL (6.4-8.2); Sodium Level 137 mmol/L (136-145); Triglycerides 120 mg/dL; Very Low Density Lipoprotein 24 mg/dL (5-40)
[2023-07-08 21:07] LABS: Testosterone, % Free 3.53 % (1.50-4.20); Testosterone, Free 18.53 ng/dL (5.00-21.00); Testosterone, Total 525 ng/dL (264-916)
== END | disposition home or self-care (01) ==
LOC: LAB 07:34
PROVIDERS: PCP Family Medicine; Visit Provider Family Medicine
DX: Z00.00 Encounter for general adult medical examination without abnormal findings (principal); G43.909 Migraine, unspecified, not intractable, without status migrainosus; E29.1 Testicular hypofunction; R53.83 Other fatigue
CPT/HCPCS: 36415; 80053; 80061; 84146; 84153; 84402; 84403; 84443; 85025; G0103

== ENCOUNTER 2024-01-01 02:13 | Inpatient (IN) | payer BC, SELFPAY ==
[2024-01-01] VITALS (10 sets, daily range): BP systolic 126–151; BP diastolic 79–107; PULSE 54–66; RESP 16–18; TEMP 36.4–36.7; O2SAT 96–99; BMI 28.8; BMI 29.2
--- NOTE | 2024-01-01 02:19 | CT_ITS ---
EXAM: CT ABDOMEN AND PELVIS WITHOUT INTRAVENOUS CONTRAST CLINICAL INDICATION: Kidney Stone TECHNIQUE: Helically acquired images were obtained of the abdomen and pelvis without intravenous contrast. CTDIvol = ( 12.04 ) mGy, DLP = ( 664.61 ) mGycm This CT exam was performed using one or more of the following dose reduction techniques: automated exposure control, adjustment of the mA and/or kV according to patient size, and/or use of iterative reconstruction technique. COMPARISON: No relevant prior studies available. FINDINGS: LOWER THORAX: Unremarkable. Lung bases are clear. No cardiomegaly. No significant pericardial effusion. ABDOMEN: LIVER: Unremarkable. Homogeneous. GALLBLADDER AND BILE DUCTS: Unremarkable. No calcified gallstones. No gallbladder distention or wall edema. No intra- or extrahepatic biliary ductal dilation. PANCREAS: Unremarkable. No focal cystic mass. SPLEEN: Unremarkable. Normal size without focal cystic or solid mass. ADRENALS: Unremarkable. No nodules. KIDNEYS AND URETERS: Punctate left lower pole renal calyceal calculus. 4.6 cm exophytic cyst at the medial aspect of the right kidney. No other renal abnormalities. No hydronephrosis. STOMACH AND BOWEL: Unremarkable. No stomach or bowel distention. No focal inflammatory change. PELVIS: APPENDIX: No evidence of acute appendicitis. BLADDER: Unremarkable. REPRODUCTIVE: Unremarkable as visualized. No mass. ABDOMEN and PELVIS: INTRAPERITONEAL SPACE: Unremarkable. No ascites or other fluid collection. No free air. BONES/JOINTS: Unremarkable. No suspicious lytic or blastic abnormality. SOFT TISSUES: Unremarkable. No discrete abdominal or pelvic wall hernia. VASCULATURE: Unremarkable. Abdominal aorta is non-dilated. LYMPH NODES: Unremarkable. No enlarged lymph nodes. CT/Abdomen/Pelvis without Cont IMPRESSION: Punctate left lower pole renal calyceal calculus. No acute or inflammatory disease or bowel obstruction. Electronically Signed: Juan Oliver MD at 3:05 EST ,
[2024-01-01] MEDS: Ondansetron 4 MG/2 ML Vial IV (02:24)
[2024-01-01] MEDS: Ketorolac 30 MG/ML Syringe IV (02:24)
[2024-01-01 02:26] LABS: Absolute Lymphocyte Count 3.13 X10^3/uL (0.83-4.51); Absolute Neutrophil Count 4.7 X10^3/uL (2.0-7.7); Basophil# 0.03 X10^3/uL; Basophil% 0.3 % (0-1); Eosinophil# 0.13 X10^3/uL; Eosinophils% 1.5 % (0-5); Hematocrit 48.5 % (40-54); Hemoglobin 16.4 g/dL (13.0-16.5); Lymphocyte # 3.13 X10^3/ul (0.83-4.51); Mean Corp Hgb Conc 33.8 g/dL (32-36); Mean Corpuscular Hgb 31.1 pg (27.0-32.0); Mean Corpuscular Volume 91.9 fL (80-94); Mean Platelet Vol. 10.1 fl (6.2-12.0); Monocyte# 0.68 X10^3/uL; Monocyte% 7.8 % (0-10); NRBC Flagged by Analyzer 0 % (0-5); Neutrophil % 54.1 % (47-70); Platelet Count 334 K/mm3 (150-450); RBC Distribution Width CV 11.8 % (11.6-14.6); RBC Distribution Width SD 39.3 fl (35.1-43.9); Red Blood Count 5.28 M/mm3 (4.6-6.2); White Blood Count 8.7 K/mm3 (4.4-11.0)
[2024-01-01 02:42] LABS: Anion Gap 5 (5-15); BUN 14 mg/dL (7-18); BUN/Creat Ratio 8.8 RATIO (10-20); Calcium,Total 8.9 mg/dL (8.5-10.1); Chloride 108 mmol/L (98-107); Creatinine, Serum 1.59 mg/dL (0.70-1.30); EST Glomerular Filtration Rate 48 mL/min (>60); Est Glom Filt Rate - Afr Amer 58 mL/min (>60); Estimated Creatinine Clearance 63.17 ml/min; Glucose 131 mg/dL (74-106); Potassium 3.5 mmol/L (3.5-5.1); Sodium Level 139 mmol/L (136-145)
[2024-01-01] MEDS: 0.9% Normal Saline (1000mL) 1,000 ML 999 ML IV (03:18)
[2024-01-01] MEDS: Morphine 4 MG/ML Syringe IV (03:18)
[2024-01-01] MEDS: HYDROmorphone 1 MG/ML Syringe IV ×2 (03:48→17:51)
[2024-01-01] MEDS: fentaNYL 100 MCG/2 ML Ampul 50 MCG IV (05:07)
[2024-01-01] MEDS: DiphenhydrAMINE 50 MG/ML Syringe IV (05:07)
--- NOTE | 2024-01-01 05:43 | PCM.HP.STD ---
HPI - General General Date of Admission: 01/01/24 Date of Service: 01/01/24 Chief Complaint: Sudden acute L flank pain, urinary retention HPI Narrative The patient is a 53 y/o M w/ PMHx: CKD stage II per GFR trending, Former chew tobacco use, HTN, Chronic migraines, Allergic Rhinitis who presents to the [facility] ED on 01/01/24 with history of sudden onset at midnight of left severe flank pain starting at the back/side and wrapping around toward the front, rated 10 out of 10 in severity, in addition to lack of urination since 8 PM the evening prior to pain onset causing eventual ED evaluation to be cautious. He does report having an episode of emesis and has had some nausea with the pain. Patient denies ever having had any similar pain or kidney stone evaluation or treatment previously. Currently upon evaluation he notes following recent ED pain medication his pain level is down to 4 out of 10 in severity but he reports this usually lasts about 30 minutes and then the pain keeps reoccurring at 10 out of 10. Workup in the ED included T97.8, heart rate 66, BP 150s 1/107, respiratory rate 18, 99% on room air, CBC with WC 8.7, human 16.4, platelet 334 without marked shift, BMP with chloride 108, BUN/creatinine 14/1.59, GFR 48, glucose 131, CT abdomen and pelvis with a 4 mm calculus at the left UVJ with mild upstream dilatation of the collecting system with mild hydroureteronephrosis, mild stranding about the parts of the left ureter and left renal pelvis probably postobstructive. In the ED patient ministered Zofran 4 mg IV x 1, morphine 4 mg IV x 1, Toradol 30 mg IV x 1, Dilaudid 1 mg IV x 1, fentanyl 50 mcg IV x 1, diphenhydramine 50 mg IV x 1 and 1 L normal saline. [facility] Medical History CKD (chronic kidney disease), stage II Allergic rhinitis Lumbar back pain Past history of chewing tobacco use Hypertension Migraines Home Medications ?Medication ?Instructions ?Recorded ?Last Taken ?Type propranolol 60 mg capsule,24 60 mg PO DAILY #90 caps 04/17/19 02/10/22 Rx hr,extended release galcanezumab-gnlm 120 mg/mL 1 ml subcut Q30D 02/01/22 Unknown History subcutaneous pen injector (Emgality Pen) rizatriptan 10 mg tablet (Maxalt) 10 mg PO PRN PRN Migraine Headache 02/03/22 Unknown History Allergy/AdvReac Type Severity Reaction Status Date / Time No Known Allergies Allergy Verified 01/01/24 02:17 Family History Mother VTE (venous thromboembolism) Father MVA (motor vehicle accident) in an MVA (patient was 9 years old at the time). Surgical History Hx of umbilical hernia repair History of bilateral inguinal hernia repair (~1998) History of sinus surgery Social History household members: spouse Smoking Status: Never smoker Smokeless tobacco user: chewing tobacco how long ago did patient quit smoking: Quit chew tobacco ~ 30 yrs prior, chewed 1 can/day since 10 y/o until quit. alcohol intake: current alcohol intake frequency: holidays/special occasions only substance use type: does not use frequency: 3-4 times per week ROS ROS Narrative Admission Review of Systems: CONSTITUTIONAL: No weight loss, fever, chills, + weakness or fatigue. HEENT: Eyes: No visual loss, blurred vision, double vision or yellow sclerae. Ears, Nose, Throat: No hearing loss, sneezing, congestion, runny nose or sore throat. SKIN: No rash or itching, lesions, wounds. CARDIOVASCULAR: No chest pain, chest pressure or chest discomfort, palpitations, edema, orthopnea, syncopal events. RESPIRATORY: No shortness of breath, cough or sputum, wheezing, hemoptysis. GASTROINTESTINAL: + anorexia, nausea, vomiting, flank/abdominal pain. No diarrhea, melena, BRBPR. GENITOURINARY: + Left flank pain, concern for urinary retention. No dysuria, frequency, urgency. NEUROLOGICAL: + History of chronic migraines with no current headache. No dizziness, syncope, paralysis, ataxia, numbness or tingling in the extremities, focal weakness, change in bowel or bladder control, seizure. MUSCULOSKELETAL: + muscle, back pain, joint pain or stiffness. HEMATOLOGIC: No anemia, bleeding or bruising. LYMPHATICS: No enlarged nodes. No history of splenectomy. PSYCHIATRIC: No history of depression or anxiety. ENDOCRINOLOGIC: No reports of sweating, cold or heat intolerance. No polyuria or polydipsia. ALLERGIES: + Allergic rhinitis. Vital Signs Vital Signs Vital Signs: 01/01/24 02:17 01/01/24 04:14 01/01/24 05:00 Temperature 97.8 F Temperature Source Oral Pulse Rate 66 60 64 Respiratory Rate 18 17 Blood Pressure 151/107 H 144/90 H 132/79 H Blood Pressure Mean 121 108 96 Pulse Ox 99 98 Oxygen Delivery Method Room Air Weight Weight: 212 lb 4.882 oz Body Mass Index (BMI) 28.8 Physical Exam Narrative Physical Examination: General: Awake, alert, oriented x 3 and cooperative, seated upright in the ED bed, fatigued, notes pain currently 4-10 after recent pain medication. Skin: Normal color, normal turgor, no icterus, no cyanosis. HEENT: AT/NC, EOMI, PERRLA, moderately dry MM, no carotid bruits or JVD noted. Lungs: Mildly diminished, greater bases, appropriate effort, no rales, ronchi or wheezing. Heart: Regular rate and rhythm; no gallop, rub audible. Abdomen: Soft, persistent left flank discomfort otherwise abdomen nontender, ND, normal BS, no appreciated HSM. Extremities: No cyanosis, clubbing, or edema. Neurological: Patient awake, alert, oriented as noted, cognitive function intact; pupils equally reactive to light and accommodation, cranial nerves grossly normal, moving all 4 extremities, no focal deficits, strength mildly to moderately globally decreased given acute presentation. Psychiatric: Affect appears fatigued, uncomfortable, no acute evidence of depressive or anxiety feelings. Results Lab / Micro Data 01/01/24 02:20 01/01/24 02:20 Labs: Laboratory Results - last 24 hr 01/01/24 02:20: WBC 8.7, RBC 5.28, Hgb 16.4, Hct 48.5, MCV 91.9, MCH 31.1, MCHC 33.8, RDW Std Deviation 39.3, RDW Coeff of Shannan 11.8, Plt Count 334, MPV 10.1, Immature Gran % (Auto) 0.300, Neut % (Auto) 54.1, Lymph % (Auto) 36.0, [place] % (Auto) 7.8, Eos % (Auto) 1.5, Baso % (Auto) 0.3, Absolute Neuts (auto) 4.7, Absolute Lymphs (auto) 3.13, Nucleated RBC % 0, Sodium 139, Potassium 3.5, Chloride 108 H, Carbon Dioxide 26.0, Anion Gap 5, BUN 14, Creatinine 1.59 H, Estim Creat Clear Calc 63.17, Est GFR (MDRD) Af Amer 58 L, Est GFR (MDRD) Non-Af 48 L, BUN/Creatinine Ratio 8.8 L, Glucose 131 H, Calcium 8.9 Imaging Radiology Impression Abdomen/Pelvis CT 01/01/24 02:19 IMPRESSION: Punctate left lower pole renal calyceal calculus. No acute or inflammatory disease or bowel obstruction. Electronically Signed: Juan Oliver MD at 3:05 EST Reading Location ID and State: [address] [place] [address] Tel , Service support , ADDENDUM: 01/01/24 050 IMPRESSION: undefined Assessment & Plan Assessment/Plan (1) Hydroureteronephrosis: (2) Left nephrolithiasis: PLAN: Plan The patient is a 53 y/o M w/ PMHx: CKD stage II per GFR trending, Former chew tobacco use, HTN, Chronic migraines, Allergic Rhinitis who presents to the [facility] ED on 01/01/24 with history of sudden onset at midnight of left severe flank pain starting at the back/side and wrapping around toward the front, rated 10 out of 10 in severity, in addition to lack of urination since 8 PM the evening prior to pain onset causing eventual ED evaluation to be cautious. He does report having an episode of emesis and has had some nausea with the pain. #1. Acute Flank Pain secondary to Acute Nephrolithiasis, intractable with associated mild left hydroureteronephrosis: Will admit to [facility], maintain on hydration, pending urinalysis but as of now no obvious WBC elevation or left shift, will maintain NPO for possible intervention needs, place on IV famotidine, will have PRN oral and IV pain regimen, judicious Toradol usage given renal function increase, neurology consulted and evaluation pending. Given size of calculus at 4 mm and evidence of hydroureteronephrosis already do suspect that likely urological intervention will be needed. Discussed case with Dr. Harding and will evaluate in case of cystoscopy/intervention needs. Per discussion with Dr. Harding will maintain him on IV rocephin pending UA, UCx. #2. Acutely elevated creatinine/renal insufficiency on Chronic Kidney Disease Stage II per GFR trending: Secondary to acute presentation as noted above, admission BUN/Cr 14/1.59, GFR 48, normally GFR 60-70 range, baseline creatinine 1.2 primarily, repeat BMP in AM. #3. Hyperglycemia, suspect stress response: Admission BMP with glucose 131, suspect stress response, if ongoing elevated blood sugars may consider hemoglobin A1c assessment. #4. Chronic migraines: Patient utilizes Maxalt as needed outpatient and is on subcu injections with Emgality monthly, encourage continued outpatient follow-up with patient neurologist as previously arranged. #5. Hypertension: Continue home regimen including propranolol, PRN hydralazine. #6. Former chew tobacco use: Encourage continued chew tobacco cessation. #7. DVT prophylaxis: SCDs, defer chemoprophylaxis in case of operative intervention needs. Charges/Coding Visit Charges Inpatient E&M: 52260 Init Hosp L2
--- NOTE | 2024-01-01 05:54 | EX.ED.DYSGE1 ---
HPI History of Present Illness Chief Complaint: Flank Pain Informant: patient and spouse/S.O. Narrative Narrative: Patient is a 53-year-old male with past medical history of hypertension. He states he went to bed normally last night and then awoke roughly 1 hour prior to arrival with sharp left-sided flank/back pain. He states there was no recent trauma or excessive activity. He denies any loss of bowel or bladder control or IV drug use. He states has been no hematuria or dysuria. However based on his sudden onset pain he has concern potential kidney stone and therefore comes in for evaluation. [facility] Medical History CKD (chronic kidney disease), stage II Allergic rhinitis Lumbar back pain Past history of chewing tobacco use Hypertension Migraines Home Medications ?Medication ?Instructions ?Recorded ?Last Taken ?Type propranolol 60 mg capsule,24 60 mg PO DAILY #90 caps 04/17/19 02/10/22 Rx hr,extended release galcanezumab-gnlm 120 mg/mL 1 ml subcut Q30D 02/01/22 Unknown History subcutaneous pen injector (Emgality Pen) rizatriptan 10 mg tablet (Maxalt) 10 mg PO PRN PRN Migraine Headache 02/03/22 Unknown History Allergy/AdvReac Type Severity Reaction Status Date / Time No Known Allergies Allergy Verified 01/01/24 02:17 Family History Mother VTE (venous thromboembolism) Father MVA (motor vehicle accident) in an MVA (patient was 9 years old at the time). Surgical History Hx of umbilical hernia repair History of bilateral inguinal hernia repair (~1998) History of sinus surgery Social History household members: spouse Smoking Status: Never smoker Smokeless tobacco user: chewing tobacco how long ago did patient quit smoking: Quit chew tobacco ~ 30 yrs prior, chewed 1 can/day since 10 y/o until quit. alcohol intake: current alcohol intake frequency: holidays/special occasions only substance use type: does not use frequency: 3-4 times per week ROS ROS ED Constitutional Constitutional ED: Denies chills or fever(s) ENT ENT ED: Denies sore throat Cardiovascular Cardiovascular: Denies chest pain Respiratory/Chest Respiratory/Chest: Denies cough or dyspnea Gastrointestinal Gastrointestinal: Reports abdominal pain and nausea; Denies diarrhea or vomiting Genitourinary Genitourinary ED: Denies dysuria, hematuria or urinary frequency Musculoskeletal Musculoskeletal: Reports back pain Integumentary Denies rash Neurologic Neurologic: Denies headache(s) Hematologic/Lymphatic Hematologic/Lymphatic: Denies easy bleeding or easy bruising EXAM Physical Exam Const Vital Signs: 01/01/24 02:17 01/01/24 04:14 01/01/24 05:00 Temperature 97.8 F Temperature Source Oral Pulse Rate 66 60 64 Respiratory Rate 18 17 Blood Pressure 151/107 H 144/90 H 132/79 H Blood Pressure Mean 121 108 96 Pulse Ox 99 98 Oxygen Delivery Method Room Air Positive well nourished and well developed General Appearance ED: well developed; Negative for pallor HEENT HEENT Narrative: Normocephalic atraumatic Eyes PERRL and EOMs intact bilaterally General Eye ED: Negative for scleral icterus Neck supple Resp normal respiratory effort and clear to auscultation bilaterally Cardio regular rate and regular rhythm Rate: other Other Details: Heart is regular rate and rhythm without murmurs rubs or gallops Radial and carotid pulses are equal and symmetric GI non-distended and no masses GI Narrative: Abdomen is soft and nondistended with normal active bowel sounds. There is pain with palpation along the left lateral abdomen without voluntary guarding or rigidity. No pulsatile mass or fluid wave Auscultation: normoactive bowel sounds Palpation: soft Back/Spine Back/Spine Narrative: Positive left CVA pain noted Extremity normal to inspection Neuro oriented x3, CN's II-XII intact bilaterally and no sensory deficits noted Sensorium / Orientation: alert Motor Exam: strength 5/5 throughout Psych mental status grossly normal Skin no rashes or lesions noted and no wounds Skin Narrative: No overlying soft tissue changes to suggest trauma or infection General Skin Exam: Negative for jaundice or pallor MDM MDM MDM Narrative Medical decision making narrative: Patient arrived to the ER hypertensive but has a past medical history of this. Based on the sudden onset of left-sided abdominal/flank pain differential diagnosis is for kidney stone versus UTI versus pyelonephritis versus atypical pancreatitis versus colitis versus diverticulitis. His history and exam is most consistent with kidney stone and therefore basic labs and a noncontrast CT were ordered. Patient's kidney function is slightly elevated at 1.59 per chart review reveals the previous version was approximately 1.2 and therefore this is not a clinically significant jump or concern for acute kidney injury. The patient CT scan confirmed a 4 to 5 mm stone in the left distal UVJ a correlates with his history and exam. He does not have signs of SUMMER or urosepsis but he has required Toradol morphine fentanyl Dilaudid and Benadryl for pain control. The medications were controlling the pain for 30 minutes to an hour and then it returns. Based on his intractable nature I do not feel he would be safe for discharge. Therefore I discussed the case with the hospitalist who contacted the urologist and at this time the urologist will follow the patient in the hospital and therefore he will be admitted to the medicine service. Plan of care was discussed with the patient who is agreeable to it History & Record Review Discussion w/independent historian: Patient and Significant other Lab Data Attestation: I reviewed the patient's lab results. Labs: Laboratory Results - last 24 hr 01/01/24 02:20 WBC 8.7 RBC 5.28 Hgb 16.4 Hct 48.5 MCV 91.9 MCH 31.1 MCHC 33.8 RDW Std Deviation 39.3 RDW Coeff of Shannan 11.8 Plt Count 334 MPV 10.1 Immature Gran % (Auto) 0.300 Neut % (Auto) 54.1 Lymph % (Auto) 36.0 [place] % (Auto) 7.8 Eos % (Auto) 1.5 Baso % (Auto) 0.3 Absolute Neuts (auto) 4.7 Absolute Lymphs (auto) 3.13 Nucleated RBC % 0 Sodium 139 Potassium 3.5 Chloride 108 H Carbon Dioxide 26.0 Anion Gap 5 BUN 14 Creatinine 1.59 H Estim Creat Clear Calc 63.17 Est GFR (MDRD) Af Amer 58 L Est GFR (MDRD) Non-Af 48 L BUN/Creatinine Ratio 8.8 L Glucose 131 H Calcium 8.9 Radiography Diagnostic Testing: Clinical Impression(s) from Imaging Studies Abdomen/Pelvis CT 01/01/24 02:19 IMPRESSION: Punctate left lower pole renal calyceal calculus. No acute or inflammatory disease or bowel obstruction. Electronically Signed: Juan Oliver MD at 3:05 EST , ADDENDUM: 01/01/24 0506 IMPRESSION: undefined Management Discussion w/another healthcare provider: Hospitalist Discharge Plan Dx/Rx/DC Orders Clinical Impression: Left nephrolithiasis, Hydroureteronephrosis, Hypertension, Intractable pain Disposition Disposition: Acute Care Hospital [facility] Discharge Date/Time: 01/01/24 06:27
[2024-01-01 06:06] LABS: Color, Urine Yellow (Yellow); Glucose, Dipstick Normal (Normal); Ketone-Dipstick Negative (Negative); Leukocyte Esterase-Dipstick 25 /ul (Negative); Nitrite-Dipstick Negative (Negative); Occult Blood-Urine 150 /ul (Negative); Protein-Dipstick 15 mg/dl (Negative); Specific Gravity, Urine 1.025 (1.002-1.030); Urine Bilirubin Dipstick Negative (Negative); Urine Clarity Sl. Cloudy (Clear); Urine Urobilinogen Normal (Normal)
[2024-01-01 06:15] LABS: Amorphous Sediment 1+; Bacteria 2+ /hpf (None Seen); Coarse Granular Cast 5-10 SEEN /lpf (0-5 /lpf); Fine Granular Cast- Urine 5-10 SEEN /lpf (0-5); Hyaline Cast 5-10 SEEN /lpf (0-5); Mucous, Urine 3+ /hpf (<or=2+); Red Blood Cells-Urine 10-25 SEEN /hpf (0-5); Squamous Epithelial Cells - UA 5-10 SEEN /hpf (0-5); White Blood Cells 10-25 SEEN /hpf (0-5)
[2024-01-01] MEDS: Ceftriaxone 1 GM/50 ML BAG IV (07:01)
[2024-01-01] MEDS: 0.9% Normal Saline (1000mL) 1,000 ML 125 ML IV ×2 (07:01→14:53)
[2024-01-01] MEDS: Ketorolac 15 MG/ML Vial IV ×3 (07:01→21:26)
[2024-01-01] MEDS: oxyCODONE 5 MG Tablet PO ×2 (08:18→16:12)
[2024-01-01] MEDS: Acetaminophen 325 MG Tablet 650 MG PO ×2 (08:19→16:12)
[2024-01-01] MEDS: Propranolol LA 60 MG Capsule PO (08:22)
[2024-01-01] MEDS: Famotidine 200 MG/20 ML MDV 20 MG in 0.9% Normal Saline (Pres. free 8 ML 300 MG IV ×2 (10:44→21:25)
--- NOTE | 2024-01-01 14:52 | CON.PCM.UR_ITS ---
HPI Consult Data Date of Consult: 01/01/24 HPI Narrative Reason for Consultation: kidney stone HPI Narrative: GITA SIERRA, is a 53 M who presents w severe pain on the left side from a very small stone in distal ureter, he might be able to pass stone. diet as solange for now, flomax, npo at [place] plan surgery tomorrow if does not pass stone. [facility] Medical History CKD (chronic kidney disease), stage II Allergic rhinitis Lumbar back pain Past history of chewing tobacco use Hypertension Migraines Home Medications ?Medication ?Instructions ?Recorded ?Last Taken ?Type propranolol 60 mg capsule,24 60 mg PO DAILY #90 caps 04/17/19 02/10/22 Rx hr,extended release galcanezumab-gnlm 120 mg/mL 1 ml subcut Q30D 02/01/22 Unknown History subcutaneous pen injector (Emgality Pen) rizatriptan 10 mg tablet (Maxalt) 10 mg PO PRN PRN Migraine Headache 02/03/22 Unknown History Allergy/AdvReac Type Severity Reaction Status Date / Time No Known Allergies Allergy Verified 01/01/24 02:17 Family History Mother VTE (venous thromboembolism) Father MVA (motor vehicle accident) in an MVA (patient was 9 years old at the time). Surgical History Hx of umbilical hernia repair History of bilateral inguinal hernia repair (~1998) History of sinus surgery Social History household members: spouse Smoking Status: Never smoker Smokeless tobacco user: chewing tobacco how long ago did patient quit smoking: Quit chew tobacco ~ 30 yrs prior, chewed 1 can/day since 10 y/o until quit. alcohol intake: current alcohol intake frequency: holidays/special occasions only substance use type: does not use frequency: 3-4 times per week Lab / Micro Data 01/01/24 02:20 01/01/24 02:20 Labs: Laboratory Results - last 24 hr 01/01/24 02:20: WBC 8.7, RBC 5.28, Hgb 16.4, Hct 48.5, MCV 91.9, MCH 31.1, MCHC 33.8, RDW Std Deviation 39.3, RDW Coeff of Shannan 11.8, Plt Count 334, MPV 10.1, Immature Gran % (Auto) 0.300, Neut % (Auto) 54.1, Lymph % (Auto) 36.0, [place] % (Auto) 7.8, Eos % (Auto) 1.5, Baso % (Auto) 0.3, Absolute Neuts (auto) 4.7, Absolute Lymphs (auto) 3.13, Nucleated RBC % 0, Sodium 139, Potassium 3.5, C hloride 108 H, Carbon Dioxide 26.0, Anion Gap 5, BUN 14, Creatinine 1.59 H, Estim Creat Clear Calc 63.17, Est GFR (MDRD) Af Amer 58 L, Est GFR (MDRD) Non-Af 48 L, BUN/Creatinine Ratio 8.8 L, Glucose 131 H, Calcium 8.9 01/01/24 05:54: Urine Color Yellow, Urine Clarity Sl. Cloudy, Urine pH 5.0, Ur Specific [place] 1.025, Urine Protein 15 H, Urine Glucose (UA) Normal, Urine Ketones Negative, Urine Occult Blood 150 H, Urine Nitrite Negative, Urine Bilirubin Negative, Urine Urobilinogen Normal, Ur Leukocyte Esterase 25 H, Urine RBC 10-25 SEEN, Urine WBC 10-25 SEEN, Ur Squamous Epith Cells 5-10 SEEN, Amorphous Sediment 1+, Urine Bacteria 2+, Hyaline Casts 5-10 SEEN, Fine Granular Casts 5-10 SEEN, Coarse Granular Casts 5-10 SEEN, Urine Mucus 3+ Imaging Radiology Impression Abdomen/Pelvis CT 01/01/24 02:19 IMPRESSION: Punctate left lower pole renal calyceal calculus. No acute or inflammatory disease or bowel obstruction. Electronically Signed: Juan Oliver MD at 3:05 EST , ADDENDUM: 01/01/24 1431 IMPRESSION: undefined
[2024-01-02 04:16] VITALS: BP 132/90; PULSE 60; RESP 16; TEMP 36.4; O2SAT 96
--- NOTE | 2024-01-02 05:00 | EKG12_ITS ---
Test Reason : AM EKG Blood Pressure : */* mmHG Vent. Rate : 54 BPM Atrial Rate : 54 BPM P-R Int : 140 ms QRS Dur : 82 ms QT Int : 382 ms P-R-T Axes : 31 -2 -3 degrees QTcB Int : 362 ms Sinus bradycardia Otherwise normal ECG When compared with ECG of 09-Feb-2022 14:01, No significant change was found Confirmed by JOSE RAFAEL COFFEY, MAXWELL ([id number]), fan mail editor SUSAN SALMERON ([id number]) on 01/02/2024 2:04:35 PM Referred By: JUSTUS Confirmed By: MAXWELL MANTILLA MD
[2024-01-02] MEDS: Acetaminophen 325 MG Tablet 650 MG PO (05:35)
[2024-01-02] MEDS: Ketorolac 15 MG/ML Vial IV (05:36)
[2024-01-02 07:05] LABS: Absolute Lymphocyte Count 2.33 X10^3/uL (0.83-4.51); Absolute Neutrophil Count 4.7 X10^3/uL (2.0-7.7); Basophil# 0.02 X10^3/uL; Basophil% 0.3 % (0-1); Eosinophil# 0.14 X10^3/uL; Eosinophils% 1.8 % (0-5); Hematocrit 43.9 % (40-54); Hemoglobin 14.7 g/dL (13.0-16.5); Lymphocyte # 2.33 X10^3/ul (0.83-4.51); Lymphocyte % 29.6 % (19-41); Mean Corp Hgb Conc 33.5 g/dL (32-36); Mean Corpuscular Hgb 31.1 pg (27.0-32.0); Mean Corpuscular Volume 92.8 fL (80-94); Mean Platelet Vol. 10.7 fl (6.2-12.0); Monocyte# 0.63 X10^3/uL; NRBC Flagged by Analyzer 0 % (0-5); Neutrophil # 4.71 X10^3/uL (2.7-7.7); Neutrophil % 59.9 % (47-70); Platelet Count 256 K/mm3 (150-450); RBC Distribution Width CV 11.8 % (11.6-14.6); RBC Distribution Width SD 40.3 fl (35.1-43.9); Red Blood Count 4.73 M/mm3 (4.6-6.2); White Blood Count 7.9 K/mm3 (4.4-11.0)
--- NOTE | 2024-01-02 07:23 | PCM.CONS.U ---
HPI Consult Data Date of Consult: 01/02/24 HPI Narrative Reason for Consultation: Kidney stone HPI Narrative: GITA SIERRA, is a 53 M who presents to the hospital with a very small stone in the distal left ureter, and over the night his pain level has decreased significantly. We have not caught the stone in the strainer but the stone is very small on CAT scan his pain level is way down he has a very high chance of passing the stone I offered him the options of either intervention taken to surgery to see if the stone is still there possible would take him to surgery and the stone is gone or released this patient home with pain medicine and expectant management. Patient was okay with going home with pain medicine and seeing if he could pass the stone he can follow-up in my office I think this is very reasonable calling with questions but I think he can be discharged home with pain medicine and follow-up in my office. [facility] Medical History CKD (chronic kidney disease), stage II Allergic rhinitis Lumbar back pain Past history of chewing tobacco use Hypertension Migraines Home Medications ?Medication ?Instructions ?Recorded ?Last Taken ?Type propranolol 60 mg capsule,24 60 mg PO DAILY #90 caps 04/17/19 02/10/22 Rx hr,extended release galcanezumab-gnlm 120 mg/mL 1 ml subcut Q30D 02/01/22 Unknown History subcutaneous pen injector (Emgality Pen) rizatriptan 10 mg tablet (Maxalt) 10 mg PO PRN PRN Migraine Headache 02/03/22 Unknown History Allergy/AdvReac Type Severity Reaction Status Date / Time No Known Allergies Allergy Verified 01/01/24 02:17 Family History Mother VTE (venous thromboembolism) Father MVA (motor vehicle accident) in an MVA (patient was 9 years old at the time). Surgical History Hx of umbilical hernia repair History of bilateral inguinal hernia repair (~1998) History of sinus surgery Social History household members: spouse Smoking Status: Never smoker Smokeless tobacco user: chewing tobacco how long ago did patient quit smoking: Quit chew tobacco ~ 30 yrs prior, chewed 1 can/day since 10 y/o until quit. alcohol intake: current alcohol intake frequency: holidays/special occasions only substance use type: does not use frequency: 3-4 times per week Lab / Micro Data 01/02/24 06:11 01/01/24 02:20 Labs: Laboratory Results - last 24 hr 01/02/24 06:11: WBC 7.9, RBC 4.73, Hgb 14.7, Hct 43.9, MCV 92.8, MCH 31.1, MCHC 33.5, RDW Std Deviation 40.3, RDW Coeff of Shannan 11.8, Plt Count 256, MPV 10.7, Immature Gran % (Auto) 0.400, Neut % (Auto) 59.9, Lymph % (Auto) 29.6, [place] % (Auto) 8.0, Eos % (Auto) 1.8, Baso % (Auto) 0.3, Absolute Neuts (auto) 4.7, Absolute Lymphs (auto) 2.33, Nucleated RBC % 0
[2024-01-02 07:40] LABS: ALB/GLOB Ratio 0.9 RATIO (0.9-2.4); AST(SGOT) 12 U/L (15-37); Alanine Aminotransfer ALT/SGPT 22 U/L (16-61); Albumin, Serum 3.1 g/dL (3.2-5.0); Alkaline Phosphatase 75 U/L (45-117); Anion Gap 4 (5-15); BUN 16 mg/dL (7-18); BUN/Creat Ratio 8.7 RATIO (10-20); Calcium,Total 8.4 mg/dL (8.5-10.1); Chloride 110 mmol/L (98-107); Creatinine, Serum 1.84 mg/dL (0.70-1.30); EST Glomerular Filtration Rate 41 mL/min (>60); Est Glom Filt Rate - Afr Amer 49 mL/min (>60); Estimated Creatinine Clearance 54.92 ml/min; Globulin 3.3 g/dL (2.2-4.2); Glucose 87 mg/dL (74-106); Potassium 3.9 mmol/L (3.5-5.1); Protein, Total 6.4 g/dL (6.4-8.2); Sodium Level 141 mmol/L (136-145)
--- NOTE | 2024-01-02 08:16 | PN.HOSP_ITS ---
Reason for Visit Reason for Visit: Diagnoses Unspecified hydronephrosis (01/01/24) Calculus of kidney (01/01/24) Subjective Subjective Feeling well. Patient stated that he was having back pain but now just more groin pain but much more tolerable. Objective Data Objective Data Vital Signs: Vital Signs Temp Pulse Resp BP Pulse Ox O2 Del Method 36.4 C L 60 16 132/90 H 96 Room Air 01/02/24 04:16 01/02/24 04:16 01/02/24 04:16 01/02/24 04:16 01/02/24 04:16 01/02/24 07:54 Oxygen Delivery Method Room Air Weight: 97.6 kg Body Mass Index (BMI) 29.2 Intake & Output: Intake and Output for Last 24 Hours 12/31/23 01/01/24 01/02/24 23:59 23:59 23:59 Intake Total 3493.33 / 4343.33 850 / 850 Output Total 500 / 1200 1100 / 1100 Balance 2993.33 / 3143.33 -250 / -250 Lab / Micro Data 01/02/24 06:11 01/02/24 06:11 Labs: Laboratory Results - last 24 hr 01/02/24 06:11: WBC 7.9, RBC 4.73, Hgb 14.7, Hct 43.9, MCV 92.8, MCH 31.1, MCHC 33.5, RDW Std Deviation 40.3, RDW Coeff of Shannan 11.8, Plt Count 256, MPV 10.7, Immature Gran % (Auto) 0.400, Neut % (Auto) 59.9, Lymph % (Auto) 29.6, [place] % (Auto) 8.0, Eos % (Auto) 1.8, Baso % (Auto) 0.3, Absolute Neuts (auto) 4.7, Absolute Lymphs (auto) 2.33, Nucleated RBC % 0, Sodium 141, Potassium 3.9, C hloride 110 H, Carbon Dioxide 26.0, Anion Gap 4 L, BUN 16, Creatinine 1.84 H, Estim Creat Clear Calc 54.92, Est GFR (MDRD) Af Amer 49 L, Est GFR (MDRD) Non-Af 41 L, BUN/Creatinine Ratio 8.7 L, Glucose 87, Calcium 8.4 L, Total Bilirubin 0.70, AST 12 L, ALT 22, Alkaline Phosphatase 75, Total Protein 6.4, Albumin 3.1 L, Globulin 3.3, Albumin/Globulin Ratio 0.9 Physical Exam Const alert and no apparent distress Constitutional Narrative: Comfortable. Nontoxic. Afebrile. No CVA tenderness. Assessment & Plan Assessment/Plan (1) Hydroureteronephrosis: (2) Left nephrolithiasis: PLAN: Plan Acute left nephrolithiasis * small stone on CT at left lower pole. * has not passed yet * urology following. * start tamsulosin * UA benign, no sign of infection, will dc abx. * Patient having improved symptoms though still with pain. So seems like the stone has not completely passed yet. No need for repeat imaging at this time. Will discharge with pain medications as well as tamsulosin. Patient to follow-up with urology as outpatient. was inquiring about repeat CT to have peace of mind to see where the stone is. I told her that this seems like it is still passing so likely still in the urethra and that would not be a clear indication to repeat CT at this time additionally I advised against that because of just increased radiation exposure. Patient was satisfied with that explanation. VTE prophylaxis: SCDs.
--- NOTE | 2024-01-02 08:20 | NURSING ---
Mr. Laughlin's significant other wanted to talk to his nurse. This RN in the room and Significant other wanted another CT scan ordered to see if he passed the stone or not because he does not want to go through that again. This RN explained that Dr. Harding would be paged and asked that question.
--- NOTE | 2024-01-02 09:12 | CASEMGMT ---
ATIYA VARELA Assessment: Face to Face with pt for initial transition planning/care coordination assessment. RN AVERY introduced self and role at [facility], pt voices understanding and consents to assessment. Pt is A&O x4 and answers all questions appropriately at this time. Pt sitting up in bed in no distress with at bedside. Care providers, pharmacy, and demographics verified/updated. Admitting Dx: L UVJ hydroureteronephrosis, calculus Strata Score: 1 PCP:Gareth Specialists:Yvette neuro Preferred Pharmacy: [facility] [place] Insurance: [place] Prescription Benefit: yes LNOK: Radha Laughlin, Living Arrangements: Pt lives with in a two story home with 3 steps to enter. 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 Pt denies concerns at home. Transportation: Pt drives self and denies concerns with transportation. DME:Denies HHC/SNF: Denies hx of Pt states no concerns with going home at time of dc. Pt states no further concerns/needs. CM to follow. Advised pt to ask CM if any further question/concerns/needs arise, voices understanding. Pt Goal: Home Plan: Home [place] RAJPUT CM
[2024-01-02] MEDS: Famotidine 200 MG/20 ML MDV 20 MG in 0.9% Normal Saline (Pres. free 8 ML 300 MG IV (09:30)
[2024-01-02] MEDS: Propranolol LA 60 MG Capsule PO (09:34)
[2024-01-02] MEDS: 0.9% Saline Lock 10 ML Syringe IV (09:34)
[2024-01-02 09:36] VITALS: BP 143/94; PULSE 63; RESP 16; TEMP 36.8; O2SAT 97
--- NOTE | 2024-01-02 10:46 | DS.PCM_ITS ---
Providers Date of Admission: 01/01/24 Primary Care Physician: Dr. Meredith Servin MD Consultations 01/01/24 06:29 Consult: Urology Routine Consulting Provider: Pal Harding Reason for Consult: Mild L hydroureteronephrosis, Calculus EMERGENT Consult: No MD Notified: Yes Date Notified: 01/01/24 Time Notified: 05:53 Method of Notification: Verbal Reason For Visit: L UVJ HYDROURETERONEPHROSIS, CALCULUS Diagnosis Discharge Diagnosis (1) Hydroureteronephrosis: Status: Acute Code(s): N13.30 - Unspecified hydronephrosis (2) Left nephrolithiasis: Status: Acute Code(s): N20.0 - Calculus of kidney Plan Acute left nephrolithiasis * small stone on CT at left lower pole. * has not passed yet * urology following. * start tamsulosin * UA benign, no sign of infection, will dc abx. * Patient having improved symptoms though still with pain. So seems like the stone has not completely passed yet. No need for repeat imaging at this time. Will discharge with pain medications as well as tamsulosin. Patient to follow-up with urology as outpatient. was inquiring about repeat CT to have peace of mind to see where the stone is. I told her that this seems like it is still passing so likely still in the urethra and that would not be a clear indication to repeat CT at this time additionally I advised against that because of just increased radiation exposure. Patient was satisfied with that explanation. VTE prophylaxis: SCDs. Medications at Discharge Home Medications propranolol 60 mg capsule,24 hr,extended release 60 mg PO DAILY #90 caps 04/17/19 galcanezumab-gnlm 120 mg/mL subcutaneous pen injector (Emgality Pen) 1 ml subcut Q30D 02/01/22 rizatriptan 10 mg tablet (Maxalt) 10 mg PO PRN PRN Migraine Headache 02/03/22 acetaminophen 325 mg tablet 1,000 mg (3.0769 x 325 mg) PO Q8 PRN Fever, pain 1- 10/10 #0 tabs 01/02/24 ibuprofen 600 mg tablet 600 mg PO Q6H PRN pain #30 tabs 01/02/24 oxycodone 5 mg tablet 5 mg PO Q4H PRN PRN Pain Score 4-10 3 days #12 tabs 01/02/24 tamsulosin 0.4 mg capsule 0.4 mg PO DAILY@8030 #10 caps 01/02/24 Hospital Course Operations None Procedures None Summary of Care Provided Minutes Spent on Discharge: 32 Weight / BMI Weight Weight: 97.6 kg Body Mass Index (BMI) 29.2 ABG / Lab / Microbiology Data 01/02/24 06:11 01/02/24 06:11 Laboratory: Laboratory Results - last 24 hr 01/02/24 06:11: WBC 7.9, RBC 4.73, Hgb 14.7, Hct 43.9, MCV 92.8, MCH 31.1, MCHC 33.5, RDW Std Deviation 40.3, RDW Coeff of Shannan 11.8, Plt Count 256, MPV 10.7, Immature Gran % (Auto) 0.400, Neut % (Auto) 59.9, Lymph % (Auto) 29.6, [place] % (Auto) 8.0, Eos % (Auto) 1.8, Baso % (Auto) 0.3, Absolute Neuts (auto) 4.7, Absolute Lymphs (auto) 2.33, Nucleated RBC % 0, Sodium 141, Potassium 3.9, C hloride 110 H, Carbon Dioxide 26.0, Anion Gap 4 L, BUN 16, Creatinine 1.84 H, Estim Creat Clear Calc 54.92, Est GFR (MDRD) Af Amer 49 L, Est GFR (MDRD) Non-Af 41 L, BUN/Creatinine Ratio 8.7 L, Glucose 87, Calcium 8.4 L, Total Bilirubin 0.70, AST 12 L, ALT 22, Alkaline Phosphatase 75, Total Protein 6.4, Albumin 3.1 L, Globulin 3.3, Albumin/Globulin Ratio 0.9 D/C Instructions Discharge Diet: No restrictions Meaningful Use Info Meaningful Use Meaningful Use Diagnoses (Choose all that apply): None applicable Ischemic Stroke Statin Dosing Therapy Reference: STATIN DOSE THERAPY REFERENCE: * Patients > 75 years receive moderate or high dose statin therapy. * Patients 75 years or YOUNGER should receive HIGH intensity statin dose unless contraindicated. You will be required to document reason for non-treatment if statin daily dose does not meet guidelines. HIGH DOSE STATIN THERAPY DAILY Atorvastatin > than or = to 40 mg Rosuvastatin > than or = to 20 mg Amlodipine + Atorvastatin > than or = to 2.5/40 mg Ezetimibe + Simvastatin 10/80 mg Simvastatin 80mg Discharge Plan Admission Admit Date/Time: 01/01/24 05:51 Primary Reason for Your Visit: Kidney stone Attending Provider: Marciano Farias Primary Care Provider: Meredith Servin Consulting Providers: Sheryl Hines; Pal Harding; Phani Zavala Instructions Additional Instructions / Restrictions: You have kidney stone that you are overall doing well. If you do have worsening pain or start passing blood in your urine, notify your physician or return to the emergency room. Discharge Orders/Prescriptions Prescriptions: New acetaminophen 325 mg Tablet 1,000 mg PO Q8 PRN (Reason: Fever, pain 1-11/23) Qty: 0 0RF oxycodone 5 mg Tablet 5 mg PO Q4H PRN PRN (Reason: Pain Score 4-10) 3 Days Qty: 12 0RF tamsulosin 0.4 mg Capsule 0.4 mg PO DAILY@1730 Qty: 10 0RF ibuprofen 600 mg tablet 600 mg PO Q6H PRN (Reason: pain) Qty: 30 0RF Continued Emgality Pen 120 mg/mL pen injector 1 ml subcut Q30D rizatriptan [Maxalt] 10 mg tablet 10 mg PO PRN PRN (Reason: Migraine Headache) propranolol 60 mg capsule,extended release 24 hr 60 mg PO DAILY Qty: 90 3RF Referrals / Follow Up: Meredith Servin MD [Primary Care Provider] - Pal Harding MD [Med Staff - Active Staff] - Within 1 Week Disposition Disposition (needs filled in before D/C Order can be placed): Home, Self Care Charges/Coding Visit Charges Inpatient E&M: 11553 Disch Hosp >30min
== END 2024-01-02 11:30 | disposition home or self-care (01) | DRG 694 ==
LOC: ED 05:54 → MS3 06:10
PROVIDERS: Admitting Provider Family Medicine; Emergency Provider Emergency Medicine; PCP Family Medicine
DX: N13.2 Hydronephrosis with renal and ureteral calculous obstruction (principal); G43.709 Chronic migraine without aura, not intractable, without status migrainosus; I12.9 Hypertensive chronic kidney disease with stage 1 through stage 4 chronic kidney disease, or unspecified chronic kidney disease; N18.2 Chronic kidney disease, stage 2 (mild); J30.9 Allergic rhinitis, unspecified; R73.9 Hyperglycemia, unspecified; Z98.890 Other specified postprocedural states; Z87.891 Personal history of nicotine dependence
CPT/HCPCS: 36415; 74176; 80048; 80053; 81001; 85025; 93005; 99284; A4216; J2405